=== PATIENT | male | born 1975 | race American Indian/Alaskan Native ===

== ENCOUNTER 2019-01-16 08:00 | Emergency (ER) | payer OTHER ==
[2019-01-16 08:11] VITALS: BP 186/110
[2019-01-16] MEDS ORDERED: IBUPROFEN 800 MG TAB PO ONE (08:37)
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
== END 2019-01-16 10:54 | disposition home or self-care (01) ==
LOC: ED 08:00
DX: S39.012A Strain of muscle, fascia and tendon of lower back, initial encounter (principal); I10 Essential (primary) hypertension; V49.49XA Driver injured in collision with other motor vehicles in traffic accident, initial encounter; X58.XXXA Exposure to other specified factors, initial encounter; Y93.89 Activity, other specified; Y92.89 Other specified places as the place of occurrence of the external cause; Y99.8 Other external cause status
CPT/HCPCS: 72100